=== PATIENT | female | born 1960 | race Caucasian/White ===

== ENCOUNTER → 2023-12-24 10:49 | Outpatient (REF) | payer BC, SELFPAY | LOC: WDC 10:49 | PROVIDERS: ATTENDING PHYSICIAN Physician Assistant Medical; FAMILY PHYSICIAN Physician Assistant | DX: Z12.31 Encounter for screening mammogram for malignant neoplasm of breast (principal); Z13.820 Encounter for screening for osteoporosis; Z78.0 Asymptomatic menopausal state | CPT/HCPCS: 77063; 77067; 77080 ==

== ENCOUNTER 2024-04-05 13:13 | Emergency (ER) | payer BC, SELFPAY ==
[2024-04-05 13:25] VITALS: BP 116/80
[2024-04-05 13:49] LABS: % Basophils 0.5 % (0-2); % Eosinophils 2.1 % (0-6); % Immature Granulocytes 0.6 % (0-0.5); % Lymphocytes 29.6 % (20.5-51.1); % Monocytes 10.4 % (1.7-9.3); % Neutrophils 56.8 % (42.2-75.2); Absolute Eosinophils 0.2 10^3/uL (0-0.7); Absolute Immature Granulocytes 0.1 10^3/uL (0-0.05); Absolute Lymphocytes 2.6 10^3/uL (1.2-3.4); Absolute Monocytes 0.9 10^3/uL (0.1-0.6); Hematocrit 42.3 % (37.0-47.0); Hemoglobin 14.2 g/dL (12.0-16.0); Mean Corp Hgb Conc. 33.6 g/dL (33.0-37.0); Mean Corpuscular Hgb 29.4 pg (27.0-31.0); Mean Corpuscular Volume 87.6 fL (81.0-99.0); Mean Platelet Volume 9.2 fL (7.4-10.4); Nucleated Red Blood Cells % 0 %; Platelet Count 331 10^3/uL (130-400); Red Blood Cell Count 4.83 10^6/uL (4.20-5.40); Red Cell Dist. Width 12.3 % (11.5-14.5); White Blood Cell Count 8.7 10^3/uL (4.8-10.8)
[2024-04-05 13:56] LABS: ALT (SGPT) 19 U/L (0-35); AST (SGOT) 21 U/L (14-36); Albumin 4.6 g/dl (3.5-5.0); Alkaline Phosphatase 117 U/L (38-126); Blood Urea Nitrogen 17 mg/dl (7-17); Calcium 10.9 mg/dl (8.4-10.2); Carbon Dioxide 29 mmol/L (22-30); Chloride 99 mmol/L (98-107); Glucose 97 mg/dl (70-99); Potassium 4.2 mmol/L (3.5-5.1); Sodium 137 mmol/L (135-145); Total Bilirubin 0.8 mg/dl (0.2-1.3); eGFR > 60.00
[2024-04-05 14:07] LABS: Troponin I < 0.012 ng/ml
--- NOTE | 2024-04-05 15:40 | ED.GENMED ---
History of Present Illness
General
Chief Complaint: Chest Pain
Time Seen by Provider: 04/05/24 15:34
History of Present Illness
History of Present Illness:
63-year-old female presents emergency department for evaluation of intermittent chest pains occurring the past week. Pain seem to be worse in the morning but do occur randomly throughout the day. No exertional component, no positional component,
no pleuritic component. No correlation with food intake. Episodes last 1 to 2 minutes before resolving. No shortness of breath, or vomiting.
Review of Systems
Review of Systems
Allergies reviewed?: Yes
All Other Systems: ROS reviewed and negative except as documented in HPI and ROS
Phy Exam
Physical Exam
Physical Exam:
GEN: Well appearing, NAD, WDWN
HEENT: Oral mucosa moist, no scleral icterus
Cardiac: Regular rateAnd rhythm, no murmur
Lung: No respiratory distress, no tachypnea
MSK: No gross deformity or injuries
Skin: Good color, no pallor or jaundice, no rashes
Neuro: AO x3, moves all extremities freely
Psych: Calm, cooperative
Scores
Heart Score for Chest Pain Patients
STEMI patient?: No
History: Slightly or Non-Suspicious
ECG: Normal
Age: >/= 65 years
Risk Factors: >/= 3 Risk Factors or History of CAD
Troponin: </= Normal Limit
Heart Score for Chest Pain Patients: 4
Heart Score Risk: 20.3% MACE over next 6 weeks
Course
Orders/Labs/Results
Orders:
Orders
04/05/24 13:15
ECG [Electrocardiogram (*1)] Urgent
Reason for Study: Chest Pain
04/05/24 13:16
EKG- Treatment ONCE
04/05/24 13:31
CXR2 [CR Chest - 2 Views ] Urgent
Comment:
Reason For Exam: chest pain
04/05/24 13:35
Complete Blood Count/With Diff Urgent
04/05/24 13:36
CMP [Comprehensive Metabolic Panel] Urgent
Troponin I Routine
Abnormal Lab Results
04/05/24 02
13:35 13:36
Abs Immat Gran (auto) 0.1 H 10^3/uL
(0-0.05)
Absolute Monos (auto) 0.9 H 10^3/uL
(0.1-0.6)
Immature Gran % 0.6 H %
(0-0.5)
Monocytes % 10.4 H %
(1.7-9.3)
Calcium 10.9 H mg/dl
(8.4-10.2)
04/05/24 13:35
04/05/24 13:36
Vital Signs
Initial and Last Documented VS:
Initial Vital Signs
Temp Pulse Resp BP Pulse Ox
98.1 F 68 18 116/80 97
04/05/24 13:25 04/05/24 13:25 04/05/24 13:25 04/05/24 13:25 04/05/24 13:25
Last Documented Vital Signs
Temp Pulse Resp BP Pulse Ox
98.1 F 68 18 116/80 97
04/05/24 13:25 04/05/24 13:25 04/05/24 13:25 04/05/24 13:25 04/05/24 13:25
MDM/Problems Addressed
MDM/Problems Addressed:
EKG and cardiac workup is unremarkable, labs reassuring. I suspect this is GERD based on the patient's description of symptoms, will start her on PPI but recommend close primary care follow-up should symptoms not improve
*Critical Care Note
Total Time (30-74mins, 75-104mins- exclusive of procedures): Not Applicable
ED Attending Note
-
Portions of this chart may have been created with voice recognition software.� Occasional wrong word or��sound alike� substitutions may have occurred due to the inherent limitations of voice recognition software.
Discharge Plan
Departure
Patient Disposition: Home (Routine Discharge)
Date of Disposition: 04/05/24
Time of Disposition: 15:40
Patient with high blood pressure during this ER visit?: No
Discharge Problem:
Atypical chest pain
Instructions: Acid Reflux and GERD in Adults (DC)
Prescriptions:
New
pantoprazole 40 mg tablet,delayed release (DR/EC)
40 mg PO DAILY Qty: 14 0RF
sucralfate [Carafate] 1 gram tablet
1 g PO AC Qty: 30 0RF
Rx Instructions:
Dissolve in 10mL clear liquid
Activity Restrictions/Additional Instructions:
Follow up with your primary doctor within 1 week for re-evaluation
If symptoms are not improving you may need to see a defensive fire control systems operator
Interventions
Interventions:
*Risk Screen - Suicide Last Done: 04/05/24 13:25
*Neglect/Abuse Screening Last Done: 04/05/24 13:25
*ED COVID-19 Vaccine History Last Done: 04/05/24 13:25
*Nursing Disposition Last Done: 04/05/24 16:25
Discharge Date and Time
Discharge Date/Time: 04/05/24 16:26
Print Language: DANISH
== END 2024-04-05 16:26 | disposition home or self-care (01) ==
LOC: EMR 13:13
PROVIDERS: Student in an Organized Health Care Education/Training Program; EMERGENCY PHYSICIAN Emergency Medicine; FAMILY PHYSICIAN Physician Assistant
DX: R07.89 Other chest pain (principal); Z91.048 Other nonmedicinal substance allergy status
CPT/HCPCS: 99283; 71046; 80053; 84484; 85025; 93005

== ENCOUNTER → 2024-12-28 07:18 | Outpatient (REF) | payer BC, SELFPAY | LOC: WDC 07:18 | PROVIDERS: ATTENDING PHYSICIAN Physician Assistant | DX: Z12.31 Encounter for screening mammogram for malignant neoplasm of breast (principal) | CPT/HCPCS: 77063; 77067 ==